=== PATIENT | male | born 1945 | race Caucasian/White ===

== ENCOUNTER 2017-10-23 15:38 | Emergency (ER) | payer BC, OTHER, SELFPAY ==
[2017-10-23] MEDS ORDERED: Lidocaine 1% (PF) 30 ML VIAL ONE (16:05)
[2017-10-23] MEDS ORDERED: HYDROcodone/Acetaminophen 5/325 mg Tablet ONE (16:16)
--- NOTE | 2017-10-23 22:51 | CON ---
DATE OF CONSULTATION: 10/23/2017 CONSULTING: Emergency room. CONSULTED PHYSICIAN: Nikhil Camarillo M.D. REASON FOR CONSULTATION: Priapism. CHIEF COMPLAINT: "My erection would not go away." HISTORY OF PRESENT ILLNESS: Mr. Orozco is a 72-year-old white male who is well known to me for his history of prostate cancer for which I have performed a robotic prostatectomy on him approximately 9 months ago. The patient has had persistent erectile dysfunction since then and has elected to treat that with TriMix injections. He came into the office today earlier for TriMix teaching in which time we injected him with 0.2 mL of TriMix. The patient had an extremely good response of an erection and I told him, I had given how strong of an erection that he did get that he would need to watch for a priapism and if his erection lasts more than 4 hours that he should come into the emergency room. While at home, he attempted an ejaculation and subsequently took 4 Sudafed for obstruction to see if the erection would go down at the 2-hour elena , but unfortunately the erection persisted despite that it started to become painful, at which time he notified us and we advised that he should go to the ER there where I would need him to do his priapism irrigation. He otherwise has no other complaints other than having difficulty urinating while having his priapism. He does have a history of bladder neck contracture, which has been treated and he has had no urinary problems since then. ALLERGIES: None. CURRENT MEDICATIONS: None. PAST SURGICAL HISTORY: 1. Robotic prostatectomy. 2. Orthopedic surgery in the left knee. 3. Left arm biopsy for basal cell carcinoma. PAST MEDICAL HISTORY: 1. Prostate cancer. 2. Basal cell carcinoma. 3. Benign prostatic hypertrophy. 4. Erectile dysfunction. 5. Bladder neck contracture. FAMILY HISTORY: Noncontributory. SOCIAL HISTORY: Patient used to smoke cigarettes but quit. He drinks socially and denies any drug use. REVIEW OF SYSTEMS: A 12 point review of systems completely unremarkable other than what was commented on the HPI. PHYSICAL EXAMINATION: VITAL SIGNS: Temperature 97.9, pulse 72, blood pressure 170/100, respirations 16, saturations 97% on room air. GENERAL: A slightly uncomfortable, otherwise communicative and alert. Appears stated age, well-nourished, well-developed. HEENT: Normocephalic, atraumatic, sclerae are nonicteric. Pupils are symmetric and round. Trachea midline. CARDIOVASCULAR: Regular rate and rhythm. Normal S1 and S2. Symmetric pulses. CHEST: Clear to auscultation bilaterally. Symmetric expansion of lungs, no increased work of breathing. ABDOMEN: Soft, nontender, nondistended, positive bowel sounds. Well-healed port site incisions without hernia. : Patient has a full erection, which is tender to the touch. The glans is soft. The scrotum demonstrates bilateral descended testes without other problems edema or hernia. EXTREMITIES: No clubbing, cyanosis, or edema. MUSCULOSKELETAL: No joint deformities or joint erythema noted. Full range of motion. SKIN: Warm, dry, good turgor, no rashes or lesions, other than the previously noted basal cell carcinoma excision site. PSYCHIATRIC: Alert and oriented x3, appropriate mood and affect for situation. PROCEDURE: Patient's skin was prepped with alcohol pad. He had a dorsal penile nerve block and a local injection of total of 5 mL of 1% lidocaine plain. A 14 gauge needle was then used to insert directly into the side of the penis at the 9 o'clock position from the right, immediately dark venous blood was drained from the penis. Manual pressure was greater on the penis to help facilitate drainage, which caused immediate detumescence; however, the penis stayed relatively still somewhat erect. On continuous blood pressure monitoring , the patient had a small amount of phenylephrine injected approximately 1 mL of a 1-10 dilution of 1%, phenylephrine to assist in vasoconstriction. On blood pressure monitoring, the patient had mild elevation of his blood pressure up to about 178/110 and subsequently back down to 170/100. He did have full detumescence and his penis was watched for a few minutes with the Jelco catheter of the [address]. There was no recurrence of his priapism and no increase in blood flow. The Jelco catheter was then removed and the penis placed into the anatomic position on the abdomen and taped down with gauze. We monitored him for approximately 10 to 15 minutes in this position. He did not have recurrence of his priapism as such, we feel that he should be good to be discharged. ASSESSMENT AND PLAN: A 72-year-old white male with prostate cancer and prostatectomy induced erectile dysfunction with priapism secondary to drug side effect of TriMix. He has had adequate detumescence. I would recommend holding off on any other TriMix injections for at least 2 weeks and he should notify me before attempting another injection at which time, I will counselor education professor him on dose adjusting. If he experiences a second priapism, would be cautious about using further TriMix injections in this individual, we may need to consider alternative modalities of treatment. For now, I have recommended that he can go about regular activities and showers, but should not submerge under water for at least 24 hours and then can resume all normal activities. I will continue to see him back in the office as scheduled. AUSTEN
== END 2017-10-23 17:35 | disposition home or self-care (01) ==
LOC: ERS 15:38
DX: N48.33 Priapism, drug-induced (principal); T46.7X5A Adverse effect of peripheral vasodilators, initial encounter; T44.3X5A Adverse effect of other parasympatholytics [anticholinergics and antimuscarinics] and spasmolytics, initial encounter; Z85.46 Personal history of malignant neoplasm of prostate; Z87.891 Personal history of nicotine dependence
CPT/HCPCS: 96372; J2001

== ENCOUNTER 2022-04-03 11:26 | Outpatient (CLI) | payer MEDICARE ==
[2022-04-03 12:48] LABS: #Eosinphils 0.1 10x3/uL (0.0-0.5); #Monocytes 0.8 10x3/uL (0.0-1.1); #Neutrophils 4.2 10x3/uL (1.5-8.4); %Basophils 0.5 % (0.0-2.0); %Eosinophils 1.8 % (0.0-6.0); %Lymphocytes 16.1 % (18.0-47.0); %Monocytes 12.5 % (0.0-10.0); %Neutrophils 68.8 % (40.0-75.0); Hemoglobin 15.5 g/dL (13.5-17.5); Mean Corpuscular HGB CONC 33.3 g/dL (32.0-36.0); Mean Corpuscular Hemoglobin 31.1 pg (27.0-33.0); Mean Corpuscular Volume 93.4 fl (81.2-95.1); Mean Platelet Volume 9.4 fl (7.4-10.4); Platelet Count 260 10x3/uL (150-450); RBC Distribution Width 13.1 % (11.5-14.5); Red Blood Cell (RBC) Count 4.99 10x6/uL (4.32-5.72); White Blood Cell (WBC) Count 6.1 10x3/uL (3.5-10.5)
[2022-04-03 12:53] LABS: Prothrombin Time 10.9 sec (9.5-12.1)
[2022-04-03 12:57] LABS: Anion Gap 16 mmol/L (10-20); BUN (Urea Nitrogen) 25 mg/dL (8.4-25.7); Calc. Creatinine Clearance 0 mL/min (70-130); Calcium 9.5 mg/dL (7.8-10.44); Carbon Dioxide 25 mmol/L (23-31); Chloride 104 mmol/L (98-107); Glucose 107 mg/dL (83-110); Potassium 4.5 mmol/L (3.5-5.1); Sodium 140 mmol/L (136-145)
== END 2022-04-03 11:27 | disposition home or self-care (01) ==
LOC: LABBT 11:26
PROVIDERS: ATTEND Orthopaedic Surgery
DX: Z01.818 Encounter for other preprocedural examination (principal); Z20.822 Contact with and (suspected) exposure to COVID-19
CPT/HCPCS: 80048; 85025; 85610; 87081; 93005; U0003; U0005; 93010

== ENCOUNTER 2022-04-08 06:44 | Observation (INO) | payer MEDICARE, OTHER ==
[2022-04-08] MEDS ORDERED: Vancomycin (BATCH) 1.5 GRAM/300 ML BAG ONE (07:00)
[2022-04-08] MEDS ORDERED: Sodium Chloride 0.9% 100 ML ONE (07:00)
[2022-04-08] MEDS ORDERED: Tranexamic Acid 1,000 MG/10 ML VIAL ONE (07:00)
[2022-04-08] MEDS ORDERED: Midazolam HCl 2 mg/2 ml Vial ONE (08:02)
[2022-04-08] MEDS ORDERED: Fentanyl 100 MCG/2 ML VIAL ONE ×3 (08:02→12:25)
[2022-04-08] MEDS ORDERED: fentaNYL Citrate/PF 100 MCG/2 ML SYRINGE ONE (09:25)
[2022-04-08] MEDS ORDERED: CEFAZOLIN 2 GM VIAL ONE (09:27)
[2022-04-08] MEDS ORDERED: Fentanyl 100 MCG/2 ML VIAL IV PRN (09:34)
[2022-04-08] MEDS ORDERED: Ondansetron PF 4 MG/2 ML Vial ONE (09:45)
[2022-04-08] MEDS ORDERED: Ondansetron PF 4 MG/2 ML Vial IVP PRN ×2 (09:45→14:02)
[2022-04-08] MEDS ORDERED: Bupivacaine HCl 0.5%/Epinephrine 1:200,000/PF 30 ml Vial ONE (09:45)
[2022-04-08] MEDS ORDERED: PROPOFOL 200 MG/20 ML VIAL ONE (09:45)
[2022-04-08] MEDS ORDERED: Ropivacaine 0.2% 550 ML 550 ML NERVE BLCK SCH (09:45)
[2022-04-08] MEDS ORDERED: Dexamethasone 20 MG/5 ML VIAL ONE (09:45)
[2022-04-08] MEDS ORDERED: HYDROcodone/Acetaminophen 10/325 mg Tablet PO PRN (09:45)
[2022-04-08] MEDS ORDERED: Zolpidem Tartrate 5 MG TAB PO PRN ×2 (09:45→14:02)
[2022-04-08] MEDS ORDERED: Promethazine HCl 25 MG/ML VIAL IM PRN ×3 (09:45→14:02)
[2022-04-08] MEDS ORDERED: Dexamethasone 4 mg/ml Vial ONE (10:12)
[2022-04-08] MEDS ORDERED: Promethazine HCl 25 MG/ML VIAL IVPB PRN (11:27)
[2022-04-08] MEDS ORDERED: Ondansetron HCl/PF 4 MG/2 ML Vial IVP PRN (11:27)
[2022-04-08] MEDS ORDERED: Ketorolac Tromethamine 30 MG/ML VIAL ONE (12:25)
[2022-04-08] MEDS: Ketorolac Tromethamine 30 MG/ML VIAL IVP SCH ×2 (12:28→17:45)
[2022-04-08] MEDS ORDERED: Acetaminophen 325 MG TAB PO PRN (14:02)
[2022-04-08] MEDS ORDERED: CEFAZOLIN 2 GM in Sodium Chloride 0.9% 100 ML IVPB SCH (14:02)
[2022-04-08] MEDS ORDERED: diphenhydrAMINE 25 MG CAP PO PRN (14:02)
[2022-04-08] MEDS: Sodium Chloride 0.9% 1,000 ML IV SCH (17:32)
[2022-04-08] MEDS: CEFAZOLIN 2 GM in Sodium Chloride 0.9% 100 ML IVPB SCH (17:41)
[2022-04-08 18:57] VITALS: BMI 27.3
[2022-04-08] MEDS ORDERED: Vancomycin 1.5 GRAM/300 ML BAG 1.5 GM in Premix Bag 1 BAG IVPB SCH (20:00)
[2022-04-09] MEDS: Sodium Chloride 0.9% 1,000 ML IV SCH ×2 (00:05→12:07)
[2022-04-09] MEDS: Ketorolac Tromethamine 30 MG/ML VIAL IVP SCH ×3 (00:33→12:11)
[2022-04-09] MEDS: CEFAZOLIN 2 GM in Sodium Chloride 0.9% 100 ML IVPB SCH (00:34)
[2022-04-09 05:52] LABS: Hemoglobin 13.4 g/dL (14.0-18.0); Mean Corpuscular HGB CONC 32.6 g/dL (32.0-36.0); Mean Corpuscular Hemoglobin 31.9 pg (27.0-31.0); Mean Platelet Volume 7.3 fL (7.4-10.4); Platelet Count 234 thou/uL (130-400); White Blood Cell (WBC) Count 11.7 thou/uL (4.8-10.8)
[2022-04-09] MEDS: HYDROcodone/Acetaminophen 10/325 mg Tablet PO PRN ×2 (08:07→12:11)
[2022-04-09] MEDS ORDERED: Ferrous Gluconate 324 MG TAB PO SCH (09:00)
[2022-04-09] MEDS ORDERED: Multivitamin W/ Minerals 1 TAB PO SCH (09:00)
[2022-04-09] MEDS ORDERED: Senokot S 8.6-50 MG TAB PO SCH (09:00)
[2022-04-09 12:01] VITALS: BP 142/89; TEMP 98
[2022-04-10] MEDS ORDERED: Aspirin 81 mg Enteric Coated Tablet PO SCH (09:00)
== END 2022-04-09 12:45 | disposition home or self-care (01) ==
LOC: SDC 06:44 → SJJU 06:50
PROVIDERS: ADMIT Orthopaedic Surgery; ATTEND Orthopaedic Surgery
PROC: 0SRD0J9 Replacement of Left Knee Joint with Synthetic Substitute, Cemented, Open Approach (ICD-10-PCS; principal; 2022-04-08)
PROC: 3E0T3BZ Introduction of Anesthetic Agent into Peripheral Nerves and Plexi, Percutaneous Approach (ICD-10-PCS; 2022-04-08)
DX: M17.12 Unilateral primary osteoarthritis, left knee (principal); N40.0 Benign prostatic hyperplasia without lower urinary tract symptoms; E78.5 Hyperlipidemia, unspecified; I10 Essential (primary) hypertension; Z79.899 Other long term (current) drug therapy
CPT/HCPCS: 27447; 64448; 73560; 97110; 97116; A4306; J3370; 36415; 85027; 90471; 90732; 96374; 96375; 96376; C1713; C1776; G0009; G0378; J0690; J1100; J1885; J2250; J2405; J2704; J2795; J3010; J3490